=== PATIENT | male | born 1965 | race Caucasian/White ===

== ENCOUNTER → 2021-02-25 | Outpatient (CLI) | payer BC, OTHER | LOC: HEART 5 15:30 | DX: I10 Essential (primary) hypertension (principal); R06.02 Shortness of breath; I34.0 Nonrheumatic mitral (valve) insufficiency | CPT/HCPCS: 93306 ==

== ENCOUNTER → 2021-03-12 | Outpatient (CLI) | payer BC, OTHER | LOC: HEART 5 14:38 | DX: R06.02 Shortness of breath (principal); R09.02 Hypoxemia; J44.9 Chronic obstructive pulmonary disease, unspecified; R91.8 Other nonspecific abnormal finding of lung field | CPT/HCPCS: 71046; 94060; 94729 ==

== ENCOUNTER → 2021-04-08 | Outpatient (CLI) | payer BC, OTHER | LOC: SLEEP-COR 14:46 | DX: G47.33 Obstructive sleep apnea (adult) (pediatric) (principal) | CPT/HCPCS: 95810 ==

== ENCOUNTER → 2022-02-05 | Outpatient (CLI) | payer BC | LOC: KOH-I 01-28 14:30 | DX: Z72.0 Tobacco use (principal); R91.1 Solitary pulmonary nodule; K44.9 Diaphragmatic hernia without obstruction or gangrene | CPT/HCPCS: 71271 ==